=== PATIENT | female | born 1995 | race African-American/Black ===

== ENCOUNTER 2017-05-18 08:13 | Emergency (ER) | payer MEDICAID ==
[~2017-05-18] VITALS: Ht 170.2 cm; Wt 59.0 kg
[2017-05-18 09:02] VITALS: BP 111/67
[2017-05-18 12:00] LABS: HEMATOCRIT. 39.5 % (36.0-48.0); HEMOGLOBIN. 13.1 g/dL (12.0-16.0); MEAN CORPUSCULAR VOLUME 84.3 fL (81.0-99.0); MEAN PLATELET VOLUME 8.5 fl (7.4-10.4); PLATELET 215 x1000/uL (130-400); RED BLOOD CELL COUNT 4.69 mill/uL (4.2-5.4); RED CELL DISTRIBUTION WIDTH 14.7 % (11.6-14.6)
[2017-05-18] MEDS ORDERED: ONDANSETRON 4MG ODT PO ONE (12:00)
[2017-05-18] MEDS ORDERED: ACETAMINOPHEN 500MG TABLET PO ONE (12:00)
[2017-05-18 12:10] LABS: CARBON DIOXIDE 29 mEq/L (21-32); CHLORIDE 104 mEq/L (98-107)
[2017-05-18 12:44] LABS: CLARITY URINE CLEAR (CLEAR); COLOR URINE YELLOW (YELLOW); GLUCOSE URINE NEGATIVE (NEGATIVE); KETONES URINE 3+ (NEGATIVE); LEUKOCYTE ESTERASE URINE NEGATIVE (NEGATIVE); NITRITE URINE NEGATIVE (NEGATIVE); OCCULT BLOOD URINE NEGATIVE (NEGATIVE); PROTEIN URINE NEGATIVE (NEGATIVE); SPECIFIC GRAVITY URINE 1.028 (1.005-1.030)
[2017-05-18 12:51] LABS: PLATELET ESTIMATE NORMAL
== END 2017-05-18 14:02 | disposition home or self-care (01) ==
LOC: ER 10:53
DX: R11.2 Nausea with vomiting, unspecified (principal); J06.9 Acute upper respiratory infection, unspecified; R19.7 Diarrhea, unspecified
CPT/HCPCS: 36415; 80053; 81003; 81025; 85025; 99284; Q0162

== ENCOUNTER 2017-05-25 14:08 | Emergency (ER) | payer MEDICAID ==
[~2017-05-25] VITALS: Ht 170.2 cm; Wt 59.0 kg
[2017-05-25 14:24] VITALS: BP 102/70
== END 2017-05-25 19:50 | disposition left against medical advice (07) ==
LOC: ER 14:08
DX: Z53.21 Procedure and treatment not carried out due to patient leaving prior to being seen by health care provider (principal)

== ENCOUNTER 2017-05-28 08:31 | Emergency (ER) | payer MEDICAID ==
[~2017-05-28] VITALS: Ht 162.6 cm; Wt 60.0 kg
[2017-05-28] MEDS ORDERED: DEXAMETHASONE 4MG/ML 1ML VIAL IM ONE (09:00)
[2017-05-28] MEDS ORDERED: KETOROLAC 60MG/2ML VIAL IM ONE (09:00)
[2017-05-28] MEDS ORDERED: KETOROLAC 30MG/ML VIAL IM NR (09:45)
[2017-05-28] MEDS ORDERED: DEXAMETHASONE 4MG/ML 1ML VIAL IM NR (09:45)
[2017-05-28 09:49] VITALS: BP 118/74
== END 2017-05-28 10:39 | disposition home or self-care (01) ==
LOC: ER 08:36
DX: J02.8 Acute pharyngitis due to other specified organisms (principal); B96.89 Other specified bacterial agents as the cause of diseases classified elsewhere
CPT/HCPCS: 96372; 99284; J1100; J1885

== ENCOUNTER 2017-10-08 13:27 | Emergency (ER) | payer MEDICAID ==
[~2017-10-08] VITALS: Ht 165.1 cm; Wt 59.0 kg
[2017-10-08 16:47] LABS: CLARITY URINE CLEAR (CLEAR); COLOR URINE YELLOW (YELLOW)
[2017-10-08 16:48] LABS: PH URINE 5.5 (4.5-8.0); PROTEIN URINE 1+ (NEGATIVE); SPECIFIC GRAVITY URINE 1.018 (1.005-1.030)
[2017-10-08 16:49] LABS: KETONES URINE NEGATIVE (NEGATIVE); LEUKOCYTE ESTERASE URINE 1+ (NEGATIVE); NITRITE URINE NEGATIVE (NEGATIVE); OCCULT BLOOD URINE NEGATIVE (NEGATIVE); UROBILINOGEN URINE 0.2 E.U./dL (0.2-1.0)
[2017-10-08 19:30] VITALS: BP 111/71
[2017-10-13 07:19] LABS: CHLAMYDIA TRACHOMATIS NAA Negative (Negative); NEISSERIA GONORRHOEAE NAA Negative (Negative)
== END 2017-10-08 19:39 | disposition home or self-care (01) ==
LOC: ER 14:49
DX: B37.9 Candidiasis, unspecified (principal)
CPT/HCPCS: 81001; 81025; 87210; 87491; 87591; 99284; Z7610

== ENCOUNTER 2019-05-09 06:33 | Emergency (ER) | payer MEDICAID ==
[~2019-05-09] VITALS: Ht 170.2 cm; Wt 62.0 kg
[2019-05-09 08:04] VITALS: BP 114/65
== END 2019-05-09 08:34 | disposition home or self-care (01) ==
LOC: ER 06:33
DX: Z00.00 Encounter for general adult medical examination without abnormal findings (principal)
CPT/HCPCS: 99281

== ENCOUNTER 2019-11-15 06:28 | Emergency (ER) | payer MEDICAID ==
[~2019-11-15] VITALS: Ht 165.1 cm; Wt 59.0 kg
[2019-11-15] MEDS ORDERED: ONDANSETRON HCL 4MG/2ML INJ IV STA (09:03)
[2019-11-15] MEDS ORDERED: SODIUM CHLORIDE 0.9% 1,000 ML IV ONE (09:03)
[2019-11-15 09:30] LABS: CLARITY URINE CLOUDY (CLEAR); COLOR URINE YELLOW (YELLOW); KETONES URINE NEGATIVE (NEGATIVE); LEUKOCYTE ESTERASE URINE TRACE (NEGATIVE); NITRITE URINE NEGATIVE (NEGATIVE); OCCULT BLOOD URINE NEGATIVE (NEGATIVE); PROTEIN URINE NEGATIVE (NEGATIVE); SPECIFIC GRAVITY URINE 1.028 (1.005-1.030); UROBILINOGEN URINE 0.2 E.U./dL (0.2-1.0)
[2019-11-15 09:36] LABS: BASOPHILS % 0.7 % (0.0-2.0); EOSINOPHILS % 0.8 % (0.0-5.0); HEMOGLOBIN. 12.6 g/dL (12.0-16.0); LYMPHOCYTES % 34.5 % (20.0-50.0); MEAN CORPUSCULAR HEMOGLOBIN 29.7 pg (28.0-32.0); MEAN CORPUSCULAR VOLUME 89.5 fL (81.0-99.0); MONOCYTES % 12.6 % (2.0-8.0); NEUTROPHILS % 51.4 % (40.0-76.0); PLATELET 180 x1000/uL (130-400); RED BLOOD CELL COUNT 4.25 mill/uL (4.2-5.4)
[2019-11-15 09:37] LABS: CHLORIDE 108 mEq/L (98-107)
[2019-11-15 13:08] VITALS: BP 118/71
== END 2019-11-15 13:10 | disposition home or self-care (01) ==
LOC: ER 06:44
DX: R19.7 Diarrhea, unspecified (principal); R11.0 Nausea
CPT/HCPCS: 36415; 80053; 81003; 81025; 83690; 85025; 96361; 96374; 99283; J2405; J7030; Z7610

== ENCOUNTER 2021-01-08 09:52 | Emergency (ER) | payer MEDICAID ==
[~2021-01-08] VITALS: Ht 170.2 cm; Wt 59.0 kg
[2021-01-08 10:01] VITALS: BP 111/75
[2021-01-08] MEDS ORDERED: IBUPROFEN 600MG TABLET PO ONE (10:15)
[2021-01-08] MEDS ORDERED: IBUP-2028 MT (10:17)
== END 2021-01-08 10:40 | disposition home or self-care (01) ==
LOC: ER 09:59
DX: J02.9 Acute pharyngitis, unspecified (principal)
CPT/HCPCS: 81025; 99282

== ENCOUNTER 2021-09-27 11:38 | Emergency (ER) | payer MEDICAID ==
[~2021-09-27] VITALS: Ht 170.2 cm; Wt 61.0 kg
[~2021-09-27 11:38] MED LIST: IBUP-2028 MT
[2021-09-27 13:19] LABS: CLARITY URINE CLEAR (CLEAR); COLOR URINE YELLOW (YELLOW); KETONES URINE 1+ (NEGATIVE); LEUKOCYTE ESTERASE URINE 2+ (NEGATIVE); NITRITE URINE NEGATIVE (NEGATIVE); OCCULT BLOOD URINE 1+ (NEGATIVE); PROTEIN URINE TRACE (NEGATIVE); SPECIFIC GRAVITY URINE 1.023 (1.005-1.030)
[2021-09-27] MEDS ORDERED: NITR-87 MT (15:13)
[2021-09-27] MEDS ORDERED: METR-167 MT (15:13)
[2021-09-27 15:27] VITALS: BP 125/65
[2021-10-01 04:07] LABS: NEISSERIA GONORRHOEAE NAA Negative (Negative)
== END 2021-09-27 15:27 | disposition home or self-care (01) ==
LOC: ER 13:35
DX: N39.0 Urinary tract infection, site not specified (principal)
CPT/HCPCS: 76830; 76856; 81003; 81025; 87210; 87491; 87591; 99284

== ENCOUNTER 2021-10-12 09:57 | Emergency (ER) | payer MEDICAID ==
[~2021-10-12] VITALS: Ht 170.2 cm; Wt 59.0 kg
[~2021-10-12 09:57] MED LIST changes: +METR-167 MT; +NITR-87 MT
[2021-10-12] MEDS ORDERED: DOXY100T2 MT (10:35)
[2021-10-12] MEDS ORDERED: CEFTRIAXONE SODIUM 500 MG/VIAL IM ONE (10:45)
[2021-10-12] MEDS ORDERED: LIDOCAINE HCL 1% 20ML VIAL (Pyxis) INJ INFIL ONE (10:45)
[2021-10-12 10:57] VITALS: BP 127/85
== END 2021-10-12 11:00 | disposition home or self-care (01) ==
LOC: ER 09:57
DX: A56.8 Sexually transmitted chlamydial infection of other sites (principal); Z87.440 Personal history of urinary (tract) infections
CPT/HCPCS: 96372; 99283; J0696; J3490

== ENCOUNTER 2022-02-07 10:18 | Emergency (ER) | payer MEDICAID, OTHER ==
[~2022-02-07] VITALS: Ht 167.6 cm; Wt 61.0 kg
[~2022-02-07 10:18] MED LIST changes: +DOXY100T2 MT
[2022-02-07 10:25] VITALS: BP 105/61
[2022-02-07] MEDS ORDERED: NEOM28.37 TP (10:45)
== END 2022-02-07 11:24 | disposition home or self-care (01) ==
LOC: ER 10:18
DX: S30.814A Abrasion of vagina and vulva, initial encounter (principal); X58.XXXA Exposure to other specified factors, initial encounter; Y93.89 Activity, other specified; Y92.89 Other specified places as the place of occurrence of the external cause; Y99.8 Other external cause status
CPT/HCPCS: 99282

== ENCOUNTER 2022-03-25 11:43 | Emergency (ER) | payer OTHER ==
[~2022-03-25] VITALS: Ht 170.2 cm; Wt 61.0 kg
[~2022-03-25 11:43] MED LIST changes: +NEOM28.37 TP
[2022-03-25] MEDS ORDERED: ACET-2029 PO (11:58)
[2022-03-25] MEDS ORDERED: TOPUD PO (11:58)
[2022-03-25] MEDS ORDERED: ACETAMINOPHEN 325MG TABLET PO PRN (12:00)
[2022-03-25 12:35] LABS: BASOPHILS % 0.6 % (0.0-2.0); EOSINOPHILS % 0.4 % (0.0-5.0); HEMATOCRIT. 40.3 % (36.0-48.0); HEMOGLOBIN. 13.4 g/dL (12.0-16.0); LYMPHOCYTES % 34.3 % (20.0-50.0); MEAN CORPUSCULAR HEMOGLOBIN 28.8 pg (28.0-32.0); MEAN CORPUSCULAR VOLUME 86.7 fL (81.0-99.0); MEAN PLATELET VOLUME 8.5 fl (7.4-10.4); MONOCYTES % 6.6 % (2.0-8.0); NEUTROPHILS % 58.1 % (40.0-76.0); PLATELET 223 x1000/uL (130-400); RED BLOOD CELL COUNT 4.65 mill/uL (4.2-5.4)
[2022-03-25 12:46] LABS: CHLORIDE 108 mEq/L (98-107)
[2022-03-25 12:57] LABS: B-HCG QUANTITATIVE < 1 mIU/mL (<3)
[2022-03-25 16:57] VITALS: BP 131/74
[2022-03-25] MEDS ORDERED: ONDA8TAB13 MT (17:14)
[2022-03-25] MEDS ORDERED: IBUP-2029 MT (17:14)
[2022-03-25 18:09] LABS: CLARITY URINE CLOUDY (CLEAR); COLOR URINE DARK YELLOW (YELLOW); KETONES URINE TRACE (NEGATIVE); LEUKOCYTE ESTERASE URINE TRACE (NEGATIVE); NITRITE URINE NEGATIVE (NEGATIVE); OCCULT BLOOD URINE 3+ (NEGATIVE); PH URINE 5.5 (4.5-8.0); PROTEIN URINE 2+ (NEGATIVE); SPECIFIC GRAVITY URINE 1.028 (1.005-1.030)
== END 2022-03-25 17:29 | disposition home or self-care (01) ==
LOC: ER 11:43
DX: N94.6 Dysmenorrhea, unspecified (principal)
CPT/HCPCS: 36415; 80053; 81003; 81025; 84702; 85025; 99283

== ENCOUNTER 2022-06-18 10:56 | Emergency (ER) | payer MEDICAID, OTHER ==
[~2022-06-18] VITALS: Ht 167.6 cm; Wt 61.0 kg
[~2022-06-18 10:56] MED LIST changes: +ACET-2029 PO; +IBUP-2029 MT; +ONDA8TAB13 MT; +TOPUD PO
[2022-06-18] MEDS ORDERED: MUPI1OIN4 TP (11:36)
[2022-06-18] MEDS ORDERED: TETANUS, DIPHTHERIA, PERTUSSIS VAC/PF 0.5ML (>10YR OLD) IM ONE (11:45)
[2022-06-18 12:14] VITALS: BP 126/86
== END 2022-06-18 12:42 | disposition home or self-care (01) ==
LOC: ER 10:56
DX: S90.562A Insect bite (nonvenomous), left ankle, initial encounter (principal); W57.XXXA Bitten or stung by nonvenomous insect and other nonvenomous arthropods, initial encounter; Y93.89 Activity, other specified; Y92.018 Other place in single-family (private) house as the place of occurrence of the external cause
CPT/HCPCS: 81025; 90471; 90715; 99283

== ENCOUNTER 2022-07-15 09:24 | Emergency (ER) | payer OTHER ==
[~2022-07-15] VITALS: Ht 170.2 cm; Wt 70.0 kg
[~2022-07-15 09:24] MED LIST changes: +MUPI1OIN4 TP
[2022-07-15 09:55] VITALS: BP 103/65
== END 2022-07-15 11:55 | disposition home or self-care (01) ==
LOC: ER 09:33
DX: S50.862A Insect bite (nonvenomous) of left forearm, initial encounter (principal); W57.XXXA Bitten or stung by nonvenomous insect and other nonvenomous arthropods, initial encounter; Y93.89 Activity, other specified; Y92.89 Other specified places as the place of occurrence of the external cause; Y99.8 Other external cause status
CPT/HCPCS: 99282

== ENCOUNTER 2022-07-21 05:10 | Emergency (ER) | payer MEDICAID, OTHER ==
[~2022-07-21] VITALS: Ht 170.2 cm; Wt 70.2 kg
[2022-07-21] MEDS ORDERED: DEXAMETHASONE 4MG/ML 1ML VIAL IM ONE (06:30)
[2022-07-21] MEDS ORDERED: KETOROLAC 60MG/2ML VIAL IM ONE (06:30)
[2022-07-21 07:02] VITALS: BP 101/65
[2022-07-21] MEDS ORDERED: TOPUD PO (08:40)
[2022-07-21] MEDS ORDERED: AMOX1TAB16 PO (08:40)
== END 2022-07-21 09:01 | disposition home or self-care (01) ==
LOC: ER 05:10
DX: J02.0 Streptococcal pharyngitis (principal)
CPT/HCPCS: 81025; 87430; 96372; 99284; J1100; J1885

== ENCOUNTER 2022-09-23 11:06 | Emergency (ER) | payer MEDICAID ==
[~2022-09-23] VITALS: Ht 167.6 cm; Wt 80.0 kg
[~2022-09-23 11:06] MED LIST changes: +AMOX1TAB16 PO
[2022-09-23] MEDS ORDERED: NAPR-679 MT (11:53)
[2022-09-23 13:17] VITALS: BP 116/69
[2022-09-23 15:23] LABS: T4 FREE 0.94 ng/dL (0.76-1.46)
== END 2022-09-23 13:18 | disposition home or self-care (01) ==
LOC: ER 11:06
DX: R51.9 Headache, unspecified (principal)
CPT/HCPCS: 36415; 84439; 84443; 99283

== ENCOUNTER 2022-11-12 14:13 | Emergency (ER) | payer MEDICAID ==
[~2022-11-12] VITALS: Ht 170.2 cm; Wt 67.0 kg
[~2022-11-12 14:13] MED LIST changes: +NAPR-679 MT
[2022-11-12 14:18] VITALS: BP 121/61
[2022-11-12] MEDS ORDERED: DIPHENHYDRAMINE 25MG CAPSULE PO ONE (16:00)
[2022-11-12] MEDS ORDERED: DIPH25CA83 MT (16:06)
== END 2022-11-12 16:28 | disposition home or self-care (01) ==
LOC: ER 14:13
DX: R21 Rash and other nonspecific skin eruption (principal); R07.0 Pain in throat; R05.9 Cough, unspecified
CPT/HCPCS: 81025; 99282; Q0163

== ENCOUNTER 2023-07-07 17:59 | Emergency (ER) | payer MEDICAID ==
[~2023-07-07] VITALS: Ht 170.2 cm; Wt 72.0 kg
[~2023-07-07 17:59] MED LIST changes: +DIPH25CA83 MT
[2023-07-07 18:58] VITALS: O2SAT 100
[2023-07-07] MEDS ORDERED: HYDR453.3 TP (19:46)
[2023-07-07] MEDS ORDERED: CEPH500C2 MT (19:46)
[2023-07-07 20:04] VITALS: BP 117/74; PULSE 84; RESP 18; TEMP 98
== END 2023-07-07 20:05 | disposition home or self-care (01) ==
LOC: ER 18:47
DX: L60.0 Ingrowing nail (principal); L30.9 Dermatitis, unspecified; M79.89 Other specified soft tissue disorders; Z79.899 Other long term (current) drug therapy
CPT/HCPCS: 99283

== ENCOUNTER 2023-07-11 10:40 | Emergency (ER) | payer MEDICAID ==
[~2023-07-11] VITALS: Ht 170.2 cm; Wt 73.0 kg
[~2023-07-11 10:40] MED LIST changes: +CEPH500C2 MT; +HYDR453.3 TP
[2023-07-11 10:45] VITALS: BP 115/48; PULSE 94; RESP 16; TEMP 98.5; O2SAT 98
== END 2023-07-11 11:36 | disposition home or self-care (01) ==
LOC: ER 10:49
DX: Z48.00 Encounter for change or removal of nonsurgical wound dressing (principal)
CPT/HCPCS: 99281

== ENCOUNTER 2023-09-28 09:54 | Emergency (ER) | payer MEDICAID, OTHER ==
[~2023-09-28] VITALS: Ht 167.6 cm; Wt 68.0 kg
[2023-09-28 10:00] VITALS: O2SAT 100
[2023-09-28] MEDS ORDERED: IBUP-2029 MT (10:47)
[2023-09-28 11:09] VITALS: BP 113/65; PULSE 84; RESP 16; TEMP 98
== END 2023-09-28 11:10 | disposition home or self-care (01) ==
LOC: ER 09:54
DX: T23.102A Burn of first degree of left hand, unspecified site, initial encounter (principal); X08.8XXA Exposure to other specified smoke, fire and flames, initial encounter; Y93.89 Activity, other specified; Y92.89 Other specified places as the place of occurrence of the external cause; Y99.8 Other external cause status
CPT/HCPCS: 99282

== ENCOUNTER 2024-02-23 15:54 | Emergency (ER) | payer MEDICAID, OTHER ==
[~2024-02-23] VITALS: Ht 167.6 cm; Wt 70.3 kg
[2024-02-23 16:11] VITALS: O2SAT 99
[2024-02-23] MEDS ORDERED: PSEU-207 MT (19:09)
[2024-02-23] MEDS ORDERED: BENZ200C52 MT (19:09)
[2024-02-23 19:31] VITALS: BP 110/60; PULSE 89; RESP 16; TEMP 98
== END 2024-02-23 19:33 | disposition home or self-care (01) ==
LOC: ER 15:54
DX: R05.9 Cough, unspecified (principal); B34.9 Viral infection, unspecified; Z79.899 Other long term (current) drug therapy; Z20.822 Contact with and (suspected) exposure to COVID-19
CPT/HCPCS: 71045; 87426; 87804; 99284